=== PATIENT | male | born 1955 | race Caucasian/White ===

== ENCOUNTER 2018-07-21 11:04 | Emergency (ER) | payer BC ==
[~2018-07-21] VITALS: Ht 167.6 cm; Wt 90.4 kg
[2018-07-21 11:10] VITALS: BP 129/72; PULSE 76; RESP 20; Ht 167.6 cm; Wt 90.4 kg
[2018-07-21] MEDS ORDERED: AMOX1TAB10 PO (12:20)
[2018-07-21] MEDS ORDERED: CEFTRIAXONE 1 GM INJ IM ONE (12:30)
--- NOTE | 2018-07-21 20:18 | ERD ---
ER Documentation Chief Complaint Chief Complaint Complains of right side facial swelling since this am HPI 63-year-old male presents for right-sided facial swelling times 1 day. He states that it may be due to his cracked tooth. Patient saw his PCP yesterday was given amoxicillin. Patient has a history of atrial fibrillation with cardioversion, triple bypass, cardiac ablation, currently on Eliquis. Patient is requesting stronger antibiotics. ROS All systems reviewed and are negative except as per history of present illness. Medications Home Meds Active Scripts Amoxicillin/Potassium Clav (Amox-Clav 875-125 mg Tablet) 875-125 mg Tab, 1 TAB PO BID for infection for 7 Days, #14 TAB Prov:CHRISTY IGNACIO DO 07/21/18 PMhx/Soc Medical and Surgical Hx: pt denies Medical Hx, pt denies Surgical Hx Hx Alcohol Use: No Hx Substance Use: No Hx Tobacco Use: No Smoking Status: Never smoker Physical Exam Vitals Vital Signs Date Temp Pulse Resp B/P (MAP) Pulse Ox O2 O2 Flow FiO2 Time Delivery Rate 07/21/18 98.8 76 20 129/72 96 11:10 (91) Physical Exam Const: No acute distress Head: Atraumatic, mild to moderate swelling of the right side of the face diffusely Eyes: Normal Conjunctiva ENT: Normal External Ears, Nose. Oral examination shows a right lower molar tooth erosion with erythema increased warmth around the gums., no abscess noted. Neck: Full range of motion. No meningismus. Resp: Clear to auscultation bilaterally Cardio: Regular rate and rhythm, no murmurs Skin: No petechiae or rashes Ext: No cyanosis, or edema Neur: Awake and alert Psych: Normal Mood and Affect Results 24 hrs Current Medications Medications Dose Sig/Marco A Start Time Status Last (Trade) Ordered Route PRN Stop Time Admin Dose Reason Admin Ceftriaxone 1 gm ONCE ONCE 07/21/18 DC 07/21/18 Sodium IM 12:30 12:29 (Rocephin) 07/21/18 12:31 Procedures/MDM Medical Decision Making: Differential diagnosis includes but not limited to cellulitis, contact dermatitis, allergic reaction Patient appeared well on physical exam. There was some swelling over the right side of the face. Patient also had right lower molar teeth erosion with signs of cellulitis. Since patient was given amoxicillin with only mild relief of symptoms, patient given prescription for Augmentin Patient advised to follow up with PCP in 1-2 days. Patient advised to return to ED for new or worsening symptoms. Patient stable on discharge from the ED. Disclaimer: Inadvertent spelling and grammatical errors are likely due to EHR/dictation software use and do not reflect on the overall quality of patient care. Also, please note that the electronic time recorded on this note does not necessarily reflect the actual time of the patient encounter. Departure Diagnosis: Primary Impression: Swelling Condition: Fair Patient Instructions: Understanding Tooth Decay Referrals: [facility] [place] YOU HAVE RECEIVED A MEDICAL SCREENING EXAM AND THE RESULTS INDICATE THAT YOU DO NOT HAVE A CONDITION THAT REQUIRES URGENT TREATMENT IN THE EMERGENCY DEPARTMENT. FURTHER EVALUATION AND TREATMENT OF YOUR CONDITION CAN WAIT UNTIL YOU ARE SEEN IN YOUR DOCTORS OFFICE WITHIN THE NEXT 1-2 DAYS. IT IS YOUR RESPONSIBILITY TO MAKE AN APPOINTMENT FOR FOLOW-UP CARE. IF YOU HAVE A PRIMARY DOCTOR --you should call your primary doctor and schedule an appointment IF YOU DO NOT HAVE A PRIMARY DOCTOR YOU CAN CALL OUR PHYSICIAN REFERRAL HOTLINE AT IF YOU CAN NOT AFFORD TO SEE A PHYSICIAN YOU CAN CHOSE FROM THE FOLLOWING [facility] [address] [facility]. [facility] [address] [facility] [address] [facility] [facility] [address] [facility]. [facility] [address]. [facility]. [address] Additional Instructions: Call your primary care doctor TOMORROW for an appointment during the next 1-2 days.See the doctor sooner or return here if your condition worsens before your appointment time. CHRISTY IGNACIO DO Jul 21, 2018 20:18
== END 2018-07-21 12:39 | disposition home or self-care (01) ==
LOC: FTE 11:04
DX: R22.0 Localized swelling, mass and lump, head (principal)
CPT/HCPCS: 96372; 99284; J0696